=== PATIENT | female | born 1970 | race Caucasian/White ===

== ENCOUNTER 2023-07-14 00:01 | Emergency (ER) | payer OTHER ==
[2023-07-14 00:08] VITALS: BP 125/71; PULSE 76; RESP 18; TEMP 97.4; BMI 20.9
[2023-07-14] MEDS ORDERED: DEXAMETHASONE SOD PHOSPHATE 10 MG/1 ML VIAL IVPUSH ONE (01:13)
[2023-07-14] MEDS ORDERED: morphine CARPU-JECT 2 MG/1 ML DISP.SYRIN IVPUSH ONE (01:13)
[2023-07-14] MEDS ORDERED: methylPREDNISolone NA SUCC 125 MG/2 ML VIAL IVPB ONE (01:14)
[2023-07-14] MEDS ORDERED: CEFTRIAXONE 1,000 MG in DEXTROSE 5%-WATER - 50 ML IVPB ONE (01:15)
[2023-07-14] MEDS ORDERED: SODIUM CHLORIDE 0.9% 1000 ML INFUS.BAG IV ONE (01:16)
[2023-07-14] MEDS ORDERED: CEFTRIAXONE 1 GM/50 ML BAG ONE (01:31)
[2023-07-14] MEDS ORDERED: DEXAMETHASONE SOD PHOSPHATE 4 MG/1 ML VIAL ONE (01:31)
[2023-07-14] MEDS ORDERED: methylPREDNISolone NA SUCC 40 MG/1 ML VIAL ONE (01:32)
== END 2023-07-14 02:34 | disposition home or self-care (01) ==
LOC: JER 00:01 → JERFT 00:01 → JER 02:34
PROC: 3E03329 Introduction of Other Anti-infective into Peripheral Vein, Percutaneous Approach (ICD-10-PCS; principal; 2023-07-14)
PROC: 3E033GC Introduction of Other Therapeutic Substance into Peripheral Vein, Percutaneous Approach (ICD-10-PCS; 2023-07-14)
PROC: 3E033GC Introduction of Other Therapeutic Substance into Peripheral Vein, Percutaneous Approach (ICD-10-PCS; 2023-07-14)
PROC: 3E033GC Introduction of Other Therapeutic Substance into Peripheral Vein, Percutaneous Approach (ICD-10-PCS; 2023-07-14)
DX: L02.03 Carbuncle of face (principal); R22.0 Localized swelling, mass and lump, head; R50.9 Fever, unspecified
CPT/HCPCS: 99284-25; J1100

== ENCOUNTER 2023-07-16 20:49 | Emergency (ER) | payer OTHER ==
[2023-07-16 20:57] VITALS: BMI 20.5
[2023-07-16] MEDS ORDERED: METOCLOPRAMIDE HCL INJECTION 10 MG/2 ML VIAL IVPB ONE (21:28)
[2023-07-16] MEDS ORDERED: SODIUM CHLORIDE 0.9% 500 ML INFUS.BAG IV ONE (21:29)
[2023-07-16] MEDS ORDERED: METOCLOPRAMIDE HCL INJECTION 10 MG/2 ML VIAL ONE (21:40)
[2023-07-16 21:51] LABS: BASO % 0.6 % (0-2.0); EOS % 1.9 % (0-4.5); HEMATOCRIT 37.1 % (32.4-45.2); HEMOGLOBIN 12.8 GM/dL (10.7-15.3); LYMPH % 34.7 % (8-40); MCHC 34.4 g/dl (32.0-36.0); MEAN CELL VOLUME 87.3 fl (80-96); MONO % 7.3 % (3.8-10.2); NEUT % 55.5 % (42.8-82.8); PLATELET COUNT 275 10^3/uL (134-434); RBC 4.25 M/mm3 (3.60-5.2); RDW 13.6 % (11.6-15.6); WHITE BLOOD COUNT 6.4 K/mm3 (4.0-10.0)
[2023-07-16 22:23] LABS: POTASSIUM 4.4 mmol/L (3.5-5.1)
[2023-07-16 22:25] LABS: BLOOD UREA NITROGEN 17.8 mg/dL (7-18); CALCIUM 9.1 mg/dL (8.5-10.1)
[2023-07-16 22:28] LABS: CREATININE 0.8 mg/dL (0.55-1.3)
[2023-07-16 22:30] LABS: BILIRUBIN,TOTAL 0.2 mg/dL (0.2-1); TOT PROT 7.6 g/dl (6.4-8.2)
[2023-07-16] MEDS ORDERED: morphine CARPU-JECT 4 MG/1 ML DISP.SYRIN IVPUSH ONE (22:32)
[2023-07-16] MEDS ORDERED: morphine SULFATE 4 MG/ML VIAL ONE (22:34)
[2023-07-16 22:45] VITALS: BP 103/66; PULSE 63; RESP 18; TEMP 98.3
[2023-07-16 23:37] LABS: THROAT:GRP A STREP NOT DETECTED (NOTDETECTED)
[2023-07-17] MEDS ORDERED: DALBAVANCIN HCL 1,500 MG in DEXTROSE 5%-WATER - 500 ML IVPB ONE (02:11)
[2023-07-17] MEDS ORDERED: KETOROLAC TROMETHAMINE 15 MG/ML VIAL IVPUSH ONE (02:14)
[2023-07-17] MEDS ORDERED: DALBAVANCIN HCL 500 MG VIAL (RESTRICTED TO ID ONLY) IVPB ONE (02:18)
[2023-07-17] MEDS ORDERED: KETOROLAC TROMETHAMINE 15 MG/ML VIAL ONE (02:19)
== END 2023-07-17 03:38 | disposition home or self-care (01) ==
LOC: JER 20:49
PROC: 3E033GC Introduction of Other Therapeutic Substance into Peripheral Vein, Percutaneous Approach (ICD-10-PCS; 2023-07-16)
PROC: 3E033GC Introduction of Other Therapeutic Substance into Peripheral Vein, Percutaneous Approach (ICD-10-PCS; 2023-07-16)
PROC: 3E03329 Introduction of Other Anti-infective into Peripheral Vein, Percutaneous Approach (ICD-10-PCS; principal; 2023-07-17)
PROC: 3E0333Z Introduction of Anti-inflammatory into Peripheral Vein, Percutaneous Approach (ICD-10-PCS; 2023-07-17)
DX: R22.0 Localized swelling, mass and lump, head (principal); R51.9 Headache, unspecified; L53.9 Erythematous condition, unspecified; J02.9 Acute pharyngitis, unspecified; R50.9 Fever, unspecified; Z20.822 Contact with and (suspected) exposure to COVID-19
CPT/HCPCS: 0241U-QW; 36415; 70450-TC; 70487-TC; 80053; 84703; 85025; 87651; 99285-25; J0875; Q9967

== ENCOUNTER 2023-09-05 11:44 | Emergency (ER) | payer OTHER ==
[2023-09-05 11:51] VITALS: BP 111/65; PULSE 79; RESP 18; TEMP 97.8; BMI 20.5
[2023-09-05] MEDS ORDERED: KETOROLAC TROMETHAMINE 30 MG/1 ML VIAL IM ONE (13:07)
[2023-09-05] MEDS ORDERED: LIDOCAINE 4% PATCH TP ONE ×2 (13:08→13:11)
[2023-09-05] MEDS ORDERED: KETOROLAC TROMETHAMINE 30 MG/1 ML VIAL ONE (13:11)
[2023-09-05] MEDS ORDERED: LIDOCAINE PATCH REMOVAL MC SCH (22:00)
== END 2023-09-05 14:57 | disposition home or self-care (01) ==
LOC: JER 11:44 → JERFT 11:44
PROC: 3E0233Z Introduction of Anti-inflammatory into Muscle, Percutaneous Approach (ICD-10-PCS; principal; 2023-09-05)
DX: M54.50 Low back pain, unspecified (principal); M25.552 Pain in left hip; M25.531 Pain in right wrist; M25.511 Pain in right shoulder
CPT/HCPCS: 72100-TC-FY; 73502-TC-LT-FY; 99284-25